=== PATIENT | male | born 1965 | race Caucasian/White ===

== ENCOUNTER 2020-09-29 15:51 | Emergency (ER) | payer OTHER, SELFPAY ==
--- NOTE | 2020-09-29 15:59 | ED.EYEPROB ---
HPI - Eye Problem General Chief complaint: Eye Problems Stated complaint: eye problems Time Seen by Provider: 09/29/20 16:00 Source: patient and RN notes reviewed Mode of arrival: ambulatory Limitations: no limitations History of Present Illness HPI Narrative: 55 year old male presents to express care with complaints of feeling of foreign object in his eye. Patient states he was grinding on his jeep on Wednesday night and he thinks he got a piece of metal in his eye. This morning he states that his eye was swollen shut, denies any change in his vision or any acute pain to his eye, just feel like something is in his eye. Patient states that he tried washing his eye out with no improvement in his symptoms. chief complaint: foreign body Onset (ago): day(s) (2) Onset description: sudden Location: left eye Eye Symptoms: foreign body sensation Place: home Mechanism: occurred while hammering/grinding Severity: mild Severity scale (1-10): 1 If Pain, Quality: other (irritating) Treatments Prior to Arrival: irrigated eye Related Data Home Medications Medication Instructions Recorded Confirmed atorvastatin 09/29/20 losartan 09/29/20 meloxicam 09/29/20 omeprazole 09/29/20 Allergies Allergy/AdvReac Type Severity Reaction Status Date / Time No Known Allergies Allergy Unverified 09/29/20 16:12 Review of Systems Review of Systems: Narrative: CONSTITUTIONAL: Denies fever, chills, or sweats. EYES: Denies visual changes, mild redness to sclera left eye, excess watering, no photophobia ENT: Denies rhinorrhea, congestion, sore throat, or otalgia. CARDIOVASCULAR: Denies chest pain, palpitations, or edema. RESPIRATORY: Denies cough or dyspnea. GASTROINTESTINAL: Denies abdominal pain, nausea, vomiting, or diarrhea. GENITOURINARY: Denies dysuria or hematuria. SKIN: Denies rash or itching. MUSCULOSKELETAL: Denies back pain, joint pain, or myalgia. NEUROLOGIC: Denies headache, numbness, or weakness. PSYCHIATRIC: Denies anxiety or depression. All systems reviewed & are unremarkable except as noted in HPI and below PMFSH Past Medical History Medical History (Updated 09/29/20 @ 16:41 by Christi Irving NP) GERD (gastroesophageal reflux disease) Hyperlipidemia Hypertension Surgical History Surgical History (Updated 09/29/20 @ 16:41 by Christi Irving NP) H/O umbilical hernia repair History of left knee surgery History of right knee surgery S/P right rotator cuff repair Family History Family History (Updated 09/29/20 @ 16:43 by Christi Irving NP) Father Patient's father is in good health Grandparent Heart disease Cancer Social History Social History (Updated 09/29/20 @ 16:42 by Christi Irving NP) Smoking status: Never smoker Alcohol intake: current Substance use: never Living arrangements: with family Gender identity (if verbalized by the patient): Male Comments At time of signature, agree with nursing past medical, surgical, social and family history. There is no relevant family history pertinent to the presenting complaint Exam Narrative: Exam Narrative: GENERAL: Well-appearing, well-nourished, and in no acute distress. HEAD: Normocephalic, atraumatic. EYES: PERRLA and EOMI.imbedded piece of metal at 9o'clock noted and removed with use of plastic end of IV catheter, excess watering no vision changes or acute pain to his left eye ENT: Nares clear, no rhinorrhea or epistaxis. Mucous membranes moist. NECK: Supple.no lymphadenopathy CHEST: Clear to auscultation. No respiratory distress.SAO2 97% on room air HEART: Regular rate and rhythm. No murmur heard. Normal peripheral pulses. ABDOMEN: Soft, nontender, nondistended, normal active bowel sounds. EXTREMITIES: Normal range of motion. No edema. SKIN: Warm, dry, no rash. NEURO: No focal deficits. Alert and oriented x3. Course Vital Signs Vital signs: Vital Signs Temperature 36.8 C 09/29/20 16:04 Pulse Rate 69 09/29/20 16:04
[2020-09-29 16:04] VITALS: BP 145/95; PULSE 69; RESP 20; TEMP 36.8; O2SAT 97
== END 2020-09-29 16:31 | disposition home or self-care (01) ==
PROVIDERS: Emergency Provider Registered Nurse; PCP Family Medicine
DX: T15.02XA Foreign body in cornea, left eye, initial encounter (principal); X58.XXXA Exposure to other specified factors, initial encounter; K21.9 Gastro-esophageal reflux disease without esophagitis; E78.5 Hyperlipidemia, unspecified; I10 Essential (primary) hypertension
CPT/HCPCS: 65220; 99213; A9270; G0463

== ENCOUNTER 2022-01-29 15:40 | Emergency (ER) | payer BC, SELFPAY ==
[2022-01-29 15:51] VITALS: BP 124/80; PULSE 77; RESP 20; TEMP 37.1; O2SAT 98
--- NOTE | 2022-01-29 15:54 | ED.BACK ---
HPI - Back Pain/Injury General Chief Complaint: Back Pain/Injury Stated Complaint: Lower Back Pain Time Seen by Provider: 01/29/22 15:54 Source: patient Mode of arrival: ambulatory Limitations: no limitations History of Present Illness HPI Narrative: 56-year-old male presents with complaint of right-sided low back pain radiating into right leg for 2 days. Denies injury. States that he woke up with pain. Has been taking ibuprofen without relief. Patient also takes meloxicam daily. Patient reports that he works with [employer]. 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 Denies any certain movement or lifting that started his pain. He is amatory with steady gait. Denies numbness, weakness to lower extremities. No loss of bowel or bladder. No previous back injuries or surgeries. Patient denies urinary symptoms. All systems reviewed and negative except as noted above. Related Data Home Medications Medication Instructions Recorded Confirmed atorvastatin 10 mg tablet 10 mg PO DAILY 09/29/20 01/29/22 losartan 50 mg tablet 50 mg PO DAILY 09/29/20 01/29/22 omeprazole 20 mg capsule,delayed 20 mg PO DAILY 09/29/20 01/29/22 release meloxicam 15 mg tablet 1 tablet PO DAILY 01/29/22 01/29/22 Allergies Allergy/AdvReac Type Severity Reaction Status Date / Time No Known Allergies Allergy Verified 01/29/22 15:44 Review of Systems Review of Systems: CONSTITUTIONAL: Denies fever, chills, or sweats. EYES: Denies visual changes, redness, or discharge. ENT: Denies rhinorrhea, congestion, sore throat, or otalgia. CARDIOVASCULAR: Denies chest pain, palpitations, or edema. RESPIRATORY: Denies cough or dyspnea. GASTROINTESTINAL: Denies abdominal pain, nausea, vomiting, or diarrhea. GENITOURINARY: Denies dysuria or hematuria. SKIN: Denies rash or itching. MUSCULOSKELETAL: Reports right-sided low back pain with radiation to right leg. NEUROLOGIC: Denies headache, numbness, or weakness. PSYCHIATRIC: Denies anxiety or depression. All other systems reviewed are negative, except as documented in HPI. [facility] Past Medical History Medical History (Updated 01/29/22 @ 16:18 by Lady Ferreira NP) GERD (gastroesophageal reflux disease) Hyperlipidemia Hypertension Surgical History Surgical History (Updated 09/29/20 @ 16:41 by Christi Irving NP) H/O umbilical hernia repair History of left knee surgery History of right knee surgery S/P right rotator cuff repair Family History Family History (Updated 09/29/20 @ 16:43 by Christi Irving NP) Father Patient's father is in good health Grandparent Heart disease Cancer Social History Social History (Updated 09/29/20 @ 16:42 by Christi Irving NP) Smoking status: Never smoker Alcohol intake: current Substance use: never Gender identity (if verbalized by the patient): Male Comments At time of signature, agree with nursing past medical, surgical, social and family history. There is no relevant family history pertinent to the presenting complaint. Exam Narrative: GENERAL: This is a well-nourished, well-developed patient, in no apparent distress. HEAD: normocephalic, atraumatic. EYES: PERRL. Sclera clear/white. Vision is grossly intact. EARS: External ears normal NOSE: External nose normal NECK: Neck supple, non-tender without lymphadenopathy, masses or thyromegaly. CARDIOVASCULAR: Regular rate and rhythm without murmurs, gallops, or rubs. RESPIRATORY: Clear to auscultation. Breath sounds equal bilaterally. No wheezes, rales, or rhonchi. SKIN: warm, Dry, intact with no suspicious lesions or rash, good texture and turgor. NEURO: awake, alert, and oriented to person, place and time. There were no obvious focal neurologic abnormalities. EXTREMITIES: Normal range of motion to all extremities. BACK: No midline or muscular tenderness to back. Bilateral positive straight leg leg raises with pain to right SI. Lower extremit
[2022-01-29] MEDS: KETOROLAC 30 MG/ML VIAL (*BKC) IM (16:16)
== END 2022-01-29 16:23 | disposition home or self-care (01) ==
PROVIDERS: Emergency Provider Nurse Practitioner Family; PCP Family Medicine
DX: M54.41 Lumbago with sciatica, right side (principal); K21.9 Gastro-esophageal reflux disease without esophagitis; E78.5 Hyperlipidemia, unspecified; I10 Essential (primary) hypertension
CPT/HCPCS: 96372; 99213; G0463; J1885

== ENCOUNTER 2022-03-04 13:56 | Emergency (ER) | payer OTHER, BC, SELFPAY ==
[2022-03-04 14:05] VITALS: BP 151/97; PULSE 86; RESP 18; O2SAT 98
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
[2022-03-04] MEDS: TETANUS,DIPHTHERIA,AC PERTUSSIS ADULT (0.5 ML) BOOSTRIX IM (14:54)
== END 2022-03-04 15:20 | disposition home or self-care (01) ==
LOC: ANHED 15:22
PROVIDERS: Emergency Provider Emergency Medicine; PCP Family Medicine
DX: T65.91XA Toxic effect of unspecified substance, accidental (unintentional), initial encounter (principal); T21.45XA Corrosion of unspecified degree of buttock, initial encounter; T32.0 Corrosions involving less than 10% of body surface; E78.5 Hyperlipidemia, unspecified; I10 Essential (primary) hypertension; Z23 Encounter for immunization
CPT/HCPCS: 90715; 99283

== ENCOUNTER 2023-05-17 09:55 | Outpatient (CLI) | payer BC, SELFPAY ==
--- NOTE | ~2023-05-17 | NM_ITS ---
EXAMINATION: NM wale perf SPECT rest & str DATE: 05/17/2023 12:01 INDICATION: Chest pain, unspecified. TECHNIQUE: Rest images were obtained following intravenous administration of 10.0 mCi Tc99m tetrofosm in (Myoview). The patient exercised on a treadmill. 31.5 mCi Tc99m tetrofosmin (Myoview) was administ ered intravenously, and stress images were obtained. Data was reconstructed into short axis and horiz ontal and vertical long axis SPECT images. Gated SPECT images were also obtained. COMPARISON: None. FINDINGS: There is no definite reversible or fixed perfusion abnormality to suggest ischemia or infar ction. There is no segmental wall motion abnormality. Left ventricular ejection fraction measures 6 3%. IMPRESSION: 1. No definite ischemia or infarct. 2. Normal left ventricular ejection fraction measuring 63%. Reviewed, dictated and finalized at location A.
--- NOTE | 2023-05-17 09:59 | EST_ITS ---
Patient Info Name: Sukumar Blanton Age: 57 years : 1965 Gender: Male Ht: 73 in Wt: 235 lbs BSA: 2.37 m2 Exam Date: 05/17/2023 11:10 AM Exam Location: [facility] Stress Patient Status: Outpatient Admit Date: 05/17/2023 Staff Ordering Physician: Jorge Alberto Hannah MD Attending Provider: Jorge Alberto Hannah MD Exercise Technologist: Karyn Curtis RDCS Exercise Physician: Basil Heredia DO Exam Type: CA stress test treadmill w NM Study Info Indications R07.9 - Chest pain, unspecified A pharmacological stress test was performed. Summary 1. 1. Negative Terrell exercise stress test for ischemic ST changes by ECG criteria. 2. 2. Good functional capacity, achieving 12 METs of workload. 3. 3. Appropriate HR response to exercise. 4. 4. Appropriate HR recovery at 1 minute post exercise. 5. 5. Nuclear scan to follow and will be reported separately. Please correlate with it. 6. 6. Patient informed of the above results. Protocol: [place]rell Stress ECG Details Stage: REST Duration (min): 1 min : 0 sec Speed (mph): 0.0 Grade (%): 0 HR (bpm): 60 SBP (mmHg): 134 DBP (mmHg): 82 METS: --- Stage: REST Duration (min): 5 min : 32 sec Speed (mph): 0.0 Grade (%): 0 HR (bpm): 73 SBP (mmHg): 134 DBP (mmHg): 82 METS: --- Stage: STAGE 1 Duration (min): 1 min : 0 sec Speed (mph): 1.7 Grade (%): 10 HR (bpm): 95 SBP (mmHg): 134 DBP (mmHg): 82 METS: --- Stage: STAGE 1 Duration (min): 2 min : 0 sec Speed (mph): 1.7 Grade (%): 10 HR (bpm): 98 SBP (mmHg): 134 DBP (mmHg): 82 METS: --- Stage: STAGE 1 Duration (min): 3 min : 0 sec Speed (mph): 1.7 Grade (%): 10 HR (bpm): 99 SBP (mmHg): 166 DBP (mmHg): 76 METS: --- Stage: STAGE 2 Duration (min): 1 min : 0 sec Speed (mph): 2.5 Grade (%): 12 HR (bpm): 106 SBP (mmHg): 166 DBP (mmHg): 76 METS: --- Stage: STAGE 2 Duration (min): 2 min : 0 sec Speed (mph): 2.5 Grade (%): 12 HR (bpm): 110 SBP (mmHg): 173 DBP (mmHg): 86 METS: --- Stage: STAGE 2 Duration (min): 3 min : 0 sec Speed (mph): 2.5 Grade (%): 12 HR (bpm): 111 SBP (mmHg): 173 DBP (mmHg): 86 METS: --- Stage: STAGE 3 Duration (min): 1 min : 0 sec Speed (mph): 3.4 Grade (%): 14 HR (bpm): 124 SBP (mmHg): 187 DBP (mmHg): 77 METS: --- Stage: STAGE 3 Duration (min): 2 min : 0 sec Speed (mph): 3.4 Grade (%): 14 HR (bpm): 130 SBP (mmHg): 187 DBP (mmHg): 77 METS: --- Stage: STAGE 3 Duration (min): 3 min : 0 sec Speed (mph): 3.4 Grade (%): 14 HR (bpm): 136 SBP (mmHg): 190 DBP (mmHg): 72 METS: --- Stage: STAGE 4 Duration (min): 1 min : 0 sec Speed (mph): 4.2 Grade (%): 16 HR (bpm): 147 SBP (mmHg): 190 DBP (mmHg): 72 METS: --- Stage: STAGE 4 Duration (min): 1 min : 20 sec Speed (mph): 4.2 Grade (%): 16 HR (bpm): 150 SBP (mmHg): 190 DBP (mmHg): 72 METS: --- ---
== END 2023-05-17 09:56 | disposition home or self-care (01) ==
PROVIDERS: PCP Family Medicine; Visit Provider Family Medicine
DX: R07.9 Chest pain, unspecified (principal)
CPT/HCPCS: 78452; 93017; A9502

== ENCOUNTER 2023-09-29 20:48 | Emergency (ER) | payer BC, SELFPAY ==
--- NOTE | ~2023-09-29 | XR_ITS ---
EXAMINATION: XR chest 2V DATE: 09/29/2023 21:10 INDICATION: Shortness of breath. Chest pain. TECHNIQUE: Frontal and lateral views of the chest were obtained. COMPARISON: Chest 2 views 10/13/2014 FINDINGS: A calcified left lung nodule is consistent with old granulomatous disease. No pleural effus ion or pneumothorax. The heart size is normal. IMPRESSION: 1. No acute cardiopulmonary disease. Reviewed, dictated and finalized at location E. [employer]
--- NOTE | 2023-09-29 20:49 | ECG_ITS ---
Measurements Intervals [place] Rate: 68 P: 33 ID: [id number] QRS: 13 QRSD: 100 T: 38 QT: 404 QTc: 430 Interpretive Statements SINUS RHYTHM WITH FREQUENT VENTRICULAR PREMATURE COMPLEXES NONSPECIFIC ST & T-WAVE ABNORMALITY ABNORMAL RHYTHM ECG NO PREVIOUS ECG AVAILABLE FOR COMPARISON Electronically Signed On 09-30-2023 11:12:03 [employer]NAGER [employer] by Imtiaz Herzog M.D.
[2023-09-29 20:58] VITALS: BP 164/84; PULSE 65; RESP 15; TEMP 36.1; O2SAT 99
[2023-09-29 21:09] LABS: Basophils Absolute Auto 0.1 K/mm3 (0.0-0.1); Basophils Percent Auto 1.1 % (0.2-1.2); Eosinophils Absolute Auto 0.1 K/mm3 (0-0.3); Eosinophils Percent Auto 2.5 % (0-4.4); Hematocrit 41.4 % (42.0-52.0); Immature Granulocyte Absolute 0.01 K/mm3 (0.00-0.031); Immature Granulocyte Percent A 0.2 % (0-0.5); Lymphocytes Absolute Auto 2.06 K/mm3 (0.9-3.2); Lymphocytes Percent Auto 36.3 % (18.3-44.2); Mean Corpuscular HGB Conc 33.8 g/dl (32-36); Mean Corpuscular Hemoglobin 30.8 pg (26-34); Mean Platelet Volume 11.3 fl (7.4-10.4); Monocytes Absolute Auto 0.4 K/mm3 (0.1-0.6); Neutrophils Percent Auto 52.9 % (45.5-73.1); Platelet Count Result 143 k/mm3 (150-375); Red Blood Count 4.55 M/mm3 (4.6-6.20); Red Cell Distribution Width 12.5 % (11.5-14.5); White Blood Count 5.7 K/mm3 (4.5-10.0)
[2023-09-29 21:19] LABS: Alanine Aminotransferase 44 U/L (6-50); Albumin Level 4.3 g/dL (3.5-5.1); Alkaline Phosphatase 55 U/L (38-126); Anion Gap 6 mmol/L (8-16); Aspartate Amino Transferase 42 U/L (17-59); Bilirubin,Total 0.5 mg/dL (0.2-1.3); Blood Urea Nitrogen 20 mg/dL (9-20); Calcium 9.4 mg/dL (8.4-10.2); Carbon Dioxide 27 mmol/L (22-30); Chloride 106 mmol/L (98-107); Estimated CRCL calculation 86 ml/min; Estimated Glomerular Filt Rate > 60; Glucose 106 mg/dL (65-110); Lipase 83 U/L (23-300); Sodium 139 mmol/L (137-145)
[2023-09-29 21:22] LABS: Prothrombin Time 14.2 Seconds (11.1-14.7)
[2023-09-29 21:23] LABS: Partial Thromboplastin Time 29.6 SECONDS (22.3-36.8)
[2023-09-29 21:30] LABS: Troponin I < 0.012 ng/mL (0.000-0.034)
[2023-09-29 22:41] VITALS: O2SAT 96
[2023-09-29 22:44] VITALS: PULSE 62
[2023-09-29] MEDS: ASPIRIN 81 MG CHEWABLE TABLET 324 MG PO (22:47)
[2023-09-29] MEDS: BELLADONNA ALK/PHENOB ELIX 10 ML, MAG HYDROX/ALUMINUM HYD/SIMETH 30 ML, LIDOCAINE HCL 2... PO (23:20)
[2023-09-30 00:29] LABS: Troponin I < 0.012 ng/mL (0.000-0.034)
--- NOTE | 2023-09-30 01:04 | ED.GENADULT ---
HPI - General Adult General Chief complaint: Chest Pain Stated complaint: sob, cp x 2 days Time Seen by Provider: 09/29/23 22:49 History of Present Illness HPI narrative: patient 58-year-old gentleman who presents emergency department with chief complaint of chest discomfort. The patient reports the last 2 weeks he has been having some increasing shortness of breath and has been having some tightness in his chest. Patient states it has been constant for the last 2 days patient reports that he has had a stress test back in April the patient reports that he has had no fever denies cough Related Data Home Medications Medication Instructions Recorded Confirmed atorvastatin 10 mg tablet 10 mg PO DAILY 09/29/20 09/29/23 Allergies Allergy/AdvReac Type Severity Reaction Status Date / Time No Known Allergies Allergy Verified 09/29/23 22:42 Review of Systems Review of Systems: A 10 system review of systems was completed on the patient and is negative except for what is stated in the HPI. Nursing and ancillary documentation was reviewed. [facility] Past Medical History Medical History Carpal tunnel syndrome Constipation Erectile dysfunction Essential (primary) hypertension Generalized osteoarthritis GERD (gastroesophageal reflux disease) Hyperlipidemia Pruritus Sciatica, right side Surgical History Surgical History H/O umbilical hernia repair History of left knee surgery History of right knee surgery S/P right rotator cuff repair Family History Family History Father Patient's father is in good health Grandparent Heart disease Cancer Social History Social History Smoking status: Never smoker Second hand tobacco smoke exposure: No Alcohol intake: current Alcohol use details: social Substance use: never Substance use type: does not use Lack of Transportation: No Lack of Food: Never True Current Housing: I Have Housing Concerned About Future Housing: No Difficulty Paying Gas/Electric Bills: No Difficulty Paying for Meds: No Currently Unemployed: No Difficulty w/ Childcare or Family Care: No Living arrangements: with family Occupation/Education: occupation Gender identity (if verbalized by the patient): Male Sexual Orientation (if Verbalized by the Patient): Straight or Heterosexual Spiritual care concerns: No Exam Narrative: GENERAL: Well-appearing, well-nourished, and in no acute distress. HEAD: Normocephalic, atraumatic. EYES: PERRLA and EOMI. ENT: Nares clear, no rhinorrhea or epistaxis. Mucous membranes moist. NECK: Supple. CHEST: Clear to auscultation. No respiratory distress. HEART: Regular rate and rhythm. No murmur heard. Normal peripheral pulses. ABDOMEN: Soft, nontender, nondistended, normal active bowel sounds. EXTREMITIES: Normal range of motion. No edema. SKIN: Warm, dry, no rash. NEURO: No focal deficits. Alert and oriented x3. PSYCH: Normal mood and affect. Course Vital Signs Vital signs: Vital Signs Temperature 36.1 C L 09/29/23 20:58 Pulse Rate 65 09/29/23 20:58 Respiratory Rate 15 09/29/23 20:58 Blood Pressure 164/84 H 09/29/23 20:58 Pulse Oximetry 99 09/29/23 20:58 Oxygen Delivery Room Air 09/29/23 20:58 Temperature 36.1 C L 09/29/23 20:58 Pulse Rate 62 09/29/23 22:44 Respiratory Rate 15 09/29/23 20:58 Blood Pressure 164/84 H 09/29/23 20:58 Pulse Oximetry 96 09/29/23 22:41 Oxygen Delivery Room Air 09/29/23 22:41 Medical Decision Making [facility] Narrative Medical decision making narrative: differential diagnosis includes ACS, pneumonia, chest x-ray showed no focal infiltrate EKG showed no acute ischemic changes initial tr
[2023-09-30 01:23] VITALS: BP 158/83; PULSE 66; RESP 16; O2SAT 100
== END 2023-09-30 01:28 | disposition home or self-care (01) ==
PROVIDERS: Emergency Provider Emergency Medicine; PCP Family Medicine
DX: R07.89 Other chest pain (principal); I10 Essential (primary) hypertension; M19.90 Unspecified osteoarthritis, unspecified site; J21.9 Acute bronchiolitis, unspecified; E78.5 Hyperlipidemia, unspecified
CPT/HCPCS: 36415; 71046; 80053; 83690; 84484; 85025; 85610; 85730; 93005; 99284; A9270

== ENCOUNTER 2023-10-04 15:49 | Outpatient (CLI) | payer BC, SELFPAY ==
[2023-10-04 16:33] LABS: D Dimer 0.35 ug/mL (<0.48)
== END 2023-10-04 15:50 | disposition home or self-care (01) ==
PROVIDERS: PCP Family Medicine; Visit Provider Family Medicine
DX: R06.02 Shortness of breath (principal)
CPT/HCPCS: 36415; 85380